=== PATIENT | male | born 1945 | race Caucasian/White ===

== ENCOUNTER 2016-04-27 18:00 | Emergency (ER) | payer OTHER ==
[2016-04-27 18:40] VITALS: BP 139/50
[2016-04-27] MEDS ORDERED: Morphine Sulfate 4 mg/mL 1mL Syr IVP ONE (18:40)
[2016-04-27 19:06] LABS: HEMATOCRIT 35.4 % (39.0-49.0); HEMOGLOBIN 12.2 gm/dL (12.6-17.4); MEAN CELL VOLUME 97.3 fl (80-99); MEAN CORPUSCULAR HEMOGLOBIN 33.5 pg (27.0-31.0); MEAN CORPUSCULAR HGB CONC 34.4 pg (28.0-36.0); MEAN PLATELET VOLUME 9.1 fl; PLATELET COUNT 196 Th/cmm (150-400); RED BLOOD COUNT 3.64 Mil/cmm (3.80-5.80); RED CELL DISTRIBUTION WIDTH 13.9 % (11.5-20.0); WHITE BLOOD COUNT 9.4 Th/cmm (4.8-10.8)
--- NOTE | 2016-04-27 19:22 | ED Physician Chart ---
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 HE HAS INTERMITTENT EPISODES OF PRESSURE SORES AND CELLULITIS IN BOTH LOWER EXTREMITIES. SINCE JANUARY 2016 HE HAS HAD A FLAIR OF THE PRESSURE PROBLEMS IN BOTH LOWER EXTREMITIES. THE PAIN HAS MOVE TO HIS BUTTOCKS OVER THE PAST 4 DAYS AND THE CELLULITIS IS GETTING WORSE. 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 HE DID QUITE WELL UNTIL HE WAS ABOUT AGE 59 WHEN HE SUFFERED A NUMBER OF FALLS WITH FRACTURES IN BOTH LOWER EXTREMITIES. HE WAS AMBULATORY UNTIL ABOUT 10 YEARS AGO WHEN HE STARTED NEEDING TO USE A WHEELCHAIR. Allergies:: Allergies Allergy/AdvReac Type Severity Reaction Status Date / Time cephalexin [From Keflex] Allergy Verified 04/27/16 18:35 Vitals:: Vital Signs - 8 hr 04/27/16 04/27/16 18:36 18:40 Temp 97.7 F HR 92 RR 18 BP 126/49 139/50 O2 Sat % 99 Review of Systems - Review of Systems General/Constitutional: No chills, No weight loss, Weakness, No diaphoresis, Edema, No loss of appetite, Other (Subjective fever.) Skin: Skin lesions, Rash, Other ( Stage I pressure injury to both the right and the left buttocks region. Extreme cellulitis with ulcerations and necrotic regions in the right lower extremity. The left lower extremity was left dressed due to the pain caused by removing the dressings in the right lower extremity. Extreme cellulitis with necrosis and ulcerations in the right lower extremity.) Head: No headache, No light-headedness Eyes: No loss of vision, No pain, No diplopia ENT: No earache, No nasal drainage, No sore throat, No tinnitus Neck: No neck pain, No stiffness, No mass noted Cardio Vascular: No chest pain, No palpitations, No orthopnea Pulmonary: No SOB, No sputum, No wheezing GI: No nausea, No vomiting, No diarrhea, Other ( Mild constipation) G/U: No dysuria, No frequency, No hematuria Musculoskeletal: Other (PAIN IN THE BUTTOCK AND LOWER EXTREMITIES.) Endocrine: No polyuria, No polydipsia Psychiatric: No prior psych history, No suicidal ideation Allergic/Immuno: No urticaria, No angioedema Neurological: No syncope, Weakness (WEAKNESS IN LOWER EXTREMITIES), No seizure, No dizziness, No confusion, No vertigo Past Medical History - Past Medical History Past Medical History: Other (POLIO AT AGE 10 WKS, ASA OVERDOSE IN 2009, RECURRENT EPISODES OF CELLULITIS/ULCERATIONS IN BOTH LOWER EXTREMITIES.) Social History: Smoker (HALF PACK PER DAY), No Alcohol (OCCATIONAL MAR), , Other (OCCATIONAL MARIJUANA USE) Physical Exam - Physical Examination General/Constitutional: Awake, Well-developed, well-nourished, Alert, Non-toxic appearing Other Gen/Cons comments:: MODERATE TO SEVERE PAIN IN THE BUTTOCKS AND BOTH LOWER EXTREMITIES. Head: Atraumatic Eyes: Lids, conjuctiva normal, PERRL, EOMI Other Skin comments:: SEVERE CELLULITIS RT LOWER EXTREMITY, STAGE 1 PRESSURE ERYTHEMA OF BUTTOCKS. ENMT: External ears, nose nl, Nasal exam nl, Oropharynx nl, Tonsils nl Other ENMT comments:: 2 RESIDUAL TEETH. NO DENTURES AT THIS TIME. Neck: Nontender, Full ROM w/o pain, No JVD, No nuchal rigidity, No mass Respiratory: Nl effort/Exclusion, Clear to Auscultation, No Wheeze/Rhonchi/Rales Cardio Vascular: RRR, No murmur, gallop, rubs, NL S1 S2 GI: No tenderness/rebounding/guarding, No organomegaly, No hernia, Normal BS's, Nondistended, No mass/bruits, No McBurney tenderness Other GI comments:: Rectal exam differed at my discretion. : NL external genitalia Other Extremities comments:: SEE MY NOTES UNDER SKIN. BOTH UPPER EXTREMITIES NORMAL. GOOD PULSES. EXCELLENT MOTOR. SENSATION INTACK. LOWER EXTREMITIES SEVERE CELLULITIS AND ULCERATIONS. Neuro/Psych: Alert/oriented Other Neuro/Psych comments:: NON-AMBULATORY. WEAKNESS IN BOTH LOWER EXTREMITIES DUE TO POLIO RESIDUAL. MOOD WAS PLEASANT AND COOPERATIVE. Labs/Radiology/EKG Results - Lab Results Results: Laboratory Tests 04/27/16 04/27/16 18:55 18:55 WBC 9.4 RBC 3.64 L Hgb 12.2 L Hct 35.4 L MCV 97.3 MCH 33.5 H MCHC Differential 34.4 RDW 13.9 Plt Count 196 MPV 9.1 Band Neutrophils % 1 Neutrophils (Manual) 78 Lymphocytes 12 L Monocytes 2 Eosinophils 6 H Basophils 1 Platelet Estimate ADEQUATE Platelet Morphology NORMAL RBC Morph Micro Appear NORMAL Sodium 136 Potassium 4.4 Chloride 109 H Carbon Dioxide 21.9 Anion Gap 9.5 BUN 38 H Creatinine 1.2 Est GFR ( Amer) > 60.0 Est GFR (Non-Af Amer) > 60.0 BUN/Creatinine Ratio 31.7 Glucose 117 H Calcium 9.3 Total Bilirubin 0.9 AST 25 ALT 21 Alkaline Phosphatase 79 Total Protein 6.9 Albumin 3.1 L Globulin 3.8 Albumin/Globulin Ratio 0.8 L LAB INTERPRETATION: CBC WITH NORMAL WBC AND MILD ANEMIA. NORMAL PLATELETS. ELETROLYTES WITHIN NORMAL PARAMETERS EXCEPT FOR MILD ELEVATION OF CHLORIDE THAT IS CLINICALLY INSIGNIFICANT. MILD ELEVATION OF BUN WITH NORMAL CREATININE. LFT 'S ALL WITHIN NORMAL PARAMETERS. Assessment - Assessment General Assessment: CASE SUMMARY: the 70-year-old male presents to the ED complaining of four days of pain in the buttocks region and severe pain in the right lower extremity due to cellulitis and pressure ulcers. The patient had polio when he was 10 weeks old which left him with weakness in both legs. He had been ambulatory until approximately 10 years ago when he started having increased weakness causing falls and bone fractures in the lower extremities. Since then the patient has been plagued by episodes of pressure ulcerations and cellulitis. The current episode began four days ago and now also involves the buttocks region. Pain was addressed with IV Morphine. NO antibiotics were administered due to the primary physicians having withheld antibiotics for the past 2 years. The patient is a [facility] subscriber and they are familiar with his complex history. I spoke to Dr. Recio to arrange transfer to a [place] facility. At the current time we are awaiting an ambulance to transfer the patient to [place]. MDM DDX for new pain in the Buttocks region and right lower extremity. NOT DVT Based on the patient's history and examination. NOT Necrotizing fasciitis , based on the patient's history and examination. NOT peripheral vascular disease based on the patient's history and physical examination. NOT sepsis based on the pt's vital signs and no leukocytosis. ED Septic Shock - . Is Septic Shock (SBP<90, OR Lactate>4 mmol\L) present?: No - <6hrs of presentation: Vital Signs: Vital Signs - 8 hr 04/27/16 04/27/16 18:36 18:40 Temp 97.7 F HR 92 RR 18 BP 126/49 139/50 O2 Sat % 99 Reassessment (Disposition) - Reassessment Reassessment Condition:: Improved - Diagnosis Diagnosis:: WEAKNESS IN LOWER EXTREMITIES DUE TO POLIO RESIDUAL. CELLULITIS IN DISTAL RIGHT LOWER EXTREMITY. PRESSURE ULCERATIONS AND NECROSIS INVOLVING BOTH BUTTOCKS AND BOTH LOWER EXTREMITIES. - Patient Disposition Discharge/Transfer:: Acute Care (other hosp) Accepting Physician:: DR. RUFUS LYN ([place] [phone]) Discussion with Medical Provider:: WILL ARRANGE FOR TRANSFER TO [facility]. ED Discharge Plan - Patient Disposition Admit/Discharge/Transfer: Other Care (other hosp)
[2016-04-27 19:23] LABS: BAND NEUTROPHILE 1 % (0-10); BASOPHIL 1 % (0-3); EOSINOPHIL 6 % (0-5); NEUTROPHILS 78 % (40-80); PLATELET ESTIMATE ADEQUATE (NORMAL); PLATELET MORPHOLOGY NORMAL (NORMAL); TOTAL CELLS COUNTED 100
[2016-04-27 19:38] LABS: ALB/GLOB RATIO 0.8 (1.0-1.8); ALKALINE PHOSPHATASE 79 U/L (34-104); ANION GAP 9.5 (7.0-16.0); BILIRUBIN,TOTAL 0.9 mg/dL (0.3-1.0); BUN - UREA NITROGEN 38 mg/dL (7-25); BUN/CREATININE RATIO 31.7; CALCIUM SERUM 9.3 mg/dL (8.6-10.3); CARBON DIOXIDE 21.9 mEq/L (21.0-31.0); CHLORIDE 109 mEq/L (98-107); CREATININE - SERUM 1.2 mg/dL (0.7-1.3); GLUCOSE 117 mg/dL (70-105); POTASSIUM SERUM 4.4 mEq/L (3.5-5.1); SGOT 25 U/L (13-39); SGPT/ALT 21 U/L (7-52); SODIUM SERUM 136 mEq/L (136-145)
[2016-04-27] MEDS ORDERED: Sodium Chloride 0.9% 1,000 ML IV ONE (20:38)
== END 2016-04-27 21:40 | disposition short-term general hospital (02) ==
LOC: ER 18:00
DX: L03.115 Cellulitis of right lower limb (principal); L89.309 Pressure ulcer of unspecified buttock, unspecified stage; L89.329 Pressure ulcer of left buttock, unspecified stage; L89.319 Pressure ulcer of right buttock, unspecified stage; R53.1 Weakness; Z88.1 Allergy status to other antibiotic agents
CPT/HCPCS: 99284; 96374; 96375; 36415; 85007; 85027; 80053; J2405; J2270; J7030; Z7502